=== PATIENT | female | born 1940 | race Caucasian/White ===

== ENCOUNTER 2020-03-30 17:18 | Inpatient (IN) | payer OTHER ==
--- NOTE | 2020-03-30 17:27 | PDOC ---
Rapid Medical Evaluation Chief Complaint: Rash Time Seen by Provider: 03/30/20 17:24 Medical Evaluation: Allergies Allergy/AdvReac Type Severity Reaction Status Date / Time No Known Allergies Allergy Verified 03/30/20 17:21 03/30/20 17:24 The patient is a 79 y/o F w/ PMH of liver CA on chemo, last dosage on 03/23, presents to the ER for a new rash to her chest and back (started on 03/27) as well as swelling to her lower legs. Denies new medication Exam: 3+ pitting edema b/l, R worse than L. Macular papular rash, non-blanching to the chest and back Orders: labs, IV insert Pt to proceed to the ER for further evaluation 03/30/20 17:26 Discharge Disposition - Diagnosis Rash - Referrals - Patient Instructions - Post Discharge Activity
--- NOTE | 2020-03-30 18:22 | PDOC ---
History of Present Illness - General Chief Complaint: Rash Stated Complaint: RASH/LEG SWOLLEN Time Seen by Provider: 03/30/20 17:24 History Source: Patient, Family Exam Limitations: No Limitations - History of Present Illness Initial Comments: 03/30/20 18:05 Onc: Rishi Mccabe at [facility] HCP: Daughter Fely Walter ([phone]) HPI: 79 y/o F PMH Hepatocellular carcinoma on Nivolumab (Dr. Rishi Mccabe, [facility]) last dosage on 03/23 presenting to the ED for a new rash to her chest and back, tea colored urine, and bilateral LE edema (R > L) starting on 03/26. Denies new medications other than a transition from her old chemotherapy to Nivolumab, now s/p second infusion on 03/23. Became concerned when she noted that her symptoms (including pre existing diarrhea "supposed to eat gluten free") were all listed on the side effects list. Called her Oncologist who suggested she present for evaluation. She denies fevers, chills, nausea, vomiting, abdominal pain, chest pain, shortness of breath, cough, any LE pain, bleeding in urine or stool, difficulty eating, cramping, shaking chills, constipation, dysuria. Meds: Docusate sodium 100 mg TID Furosemide 20 mg daily Levofloxacin 500 mg daily Levothyroxine 25 mcg daily Loperamide 2 mg QID Metronidazole 250 mg TID Omeprazole 40 mg daily Pantoprazole 40 mg daily Spironolactone 25 mg daily Labs from 02/24/20 available for comparison. Past History - Travel History Traveled outside of the country in the last 30 days: No Close contact w/someone who was outside of country & ill: No - Medical History Allergies/Adverse Reactions: Allergies Allergy/AdvReac Type Severity Reaction Status Date / Time No Known Allergies Allergy Verified 03/30/20 17:21 Home Medications: Ambulatory Orders Furosemide [Lasix] 20 mg PO DAILY 03/30/20 - Psycho-Social/Smoking History Smoking History: Never smoked Number of Cigarettes Smoked Daily: 4 Information on smoking cessation initiated: No 'Breaking Loose' booklet given: 10/26/13 - Substance Abuse Hx (Audit-C & DAST Scrn) How often the patient has a drink containing alcohol: Never Score: In Men: 4 or > Positive; In Women: 3 or > Positive: 0 Screen Result (Pos requires Nsg. Audit-10AR): Negative In the last yr the pt used illegal drug/Rx for NonMed reason: No Score: Yes response is considered Positive: 0 Screen Result (Positive result requires Nsg. DAST-10): Negative Review of Systems - Review of Systems Able to Perform ROS?: Yes Is the patient limited [place]alan proficient: Yes Constitutional: No: Chills, Diaphoresis, Fever, Weakness HEENTM: No: Recent change in vision, Throat Pain Respiratory: No: Cough, Shortness of Breath, Wheezing Cardiac (ROS): Yes: Edema. No: Chest Pain, Irregular Heart Rate, Lightheadedness, Palpitations, Syncope, Chest Tightness ABD/GI: Yes: Diarrhea (chronic during cancer treatment). No: Constipated, Nausea, Vomiting : Yes: See HPI (dark colored urine). No: Burning, Dysuria, Frequency, Hematuria Musculoskeletal: No: Muscle Pain, Muscle Weakness Integumentary: Yes: Pruritus (mild overlyign rash), Rash (chest and back). No: Bruising, Dryness, Erythema Neurological: No: Headache, Numbness, Tingling, Weakness Psychiatric: No: Stressors, Change in Appetite Endocrine: No: Increased Thirst, Increased Urine Hematologic/Lymphatic: No: Anemia, Blood Clots, Easy Bleeding All Other Systems: Reviewed and Negative *Physical Exam - Vital Signs Last Vital Signs Temp Pulse Resp BP Pulse Ox 98.2 F 80 15 134/87 97 03/30/20 17:22 03/30/20 17:22 03/30/20 17:22 03/30/20 17:22 03/30/20 17:22 - Physical Exam 03/30/20 18:24 Vitals reviewed, AFVSS GEN: Well appearing, elderly, appears stated age, NAD, comfortable. AAOx3. HEENT: NCAT, EOMI, PERRL. Sclera anicteric, non-injected. No facial asymmetry. Moist mucous membranes. Normal voice. Trachea midline. CV: RRR, S1/S2, no murmurs / rubs / gallops appreciated. LUNG: CTABL, normal work of breathing. No wheezes, rales, rhonchi. No cough. Speaking full sentences. GI: Soft, NTND, +BS, no guarding, no rebound. No masses. EXTREMITIES: 2+ distal pulses. No clubbing / cyanosis. 3+ edema bilateral LE with R > L, non-tender to palpation. No gross deformity in any extremity. SKIN: Warm, dry, scattered 0.5-1cm diameter, erythematous, blanching, non- tender, raised papules across chest and back without signs of excoriation, non- jaundiced. PSYCH: Normal mood and affect. Cooperative and appropriate. NEURO: CN grossly intact. Moving all extremities well. Normal strength and sensation grossly. ED Treatment Course - LABORATORY CBC & Chemistry Diagram: 03/30/20 18:20 03/30/20 18:20 - RADIOLOGY Radiology Studies Ordered: Category Date Time Status DUPLEX VASCUL US-2LEGS [US] Stat Ultrasound 03/30/20 18:00 Ordered Medical Decision Making - Medical Decision Making 03/30/20 18:22 79 y/o F PMH Hepatocellular carcinoma on Nivolumab (Dr. Rishi Mccabe, [facility]) last dosage on 03/23 presenting to the ED for a new rash to her chest and back, tea colored urine, and bilateral LE edema (R > L) starting on 03/26. History notable for recent chemo, simultaneous development of rash, LE edema, and "tea colored urine." Exam notable for stable vitals, rash as described, RLE > LLE with 3+ edema. Together concerning for infectious etiology in setting of immune suppression, drug reaction to / hypersensitivity to / side effect of new chemotherapy agent, DVT, cancer progression with lymphatic obstruction. - CBC, CMP, Coags, BNP - UA, UCx - Duplex LE - EKG - Stool culture 03/30/20 18:49 EKbpm, NSR, normal axis, QTc 495, no ST elevations but review limited by poor quality data / baseline Patient endorsed to overnight resident. Follow up labs, imaging. Disposition appropriately. Discharge - Discharge Information Problems reviewed: Yes Clinical Impression/Diagnosis: Rash, Lower extremity edema Condition: Stable - Follow up/Referral Referrals: ON STAFF,NOT [Primary Care Provider] - - Patient Discharge Instructions - Post Discharge Activity
[2020-03-30 18:37] LABS: BASO % 0.7 % (0-2.0); EOS % 1.8 % (0-4.5); HEMATOCRIT 33.3 % (32.4-45.2); HEMOGLOBIN 11.2 GM/dL (10.7-15.3); LYMPH % 34.7 % (8-40); MCH 33.4 pg (25.7-33.7); MCHC 33.6 g/dl (32.0-36.0); MEAN CELL VOLUME 99.3 fl (80-96); MEAN PLT VOLUME 8.1 fl (7.5-11.1); MONO % 12.9 % (3.8-10.2); NEUT % 49.9 % (42.8-82.8); PLATELET COUNT 116 K/MM3 (134-434); RBC 3.35 M/mm3 (3.60-5.2); RDW 17.6 % (11.6-15.6); WHITE BLOOD COUNT 5.9 K/mm3 (4.0-10.0)
--- NOTE | 2020-03-30 19:08 | PDOC ---
*Physical Exam - Vital Signs Last Vital Signs Temp Pulse Resp BP Pulse Ox 98.2 F 80 15 134/87 97 03/30/20 17:22 03/30/20 17:22 03/30/20 17:22 03/30/20 17:22 03/30/20 17:22 - Physical Exam 03/30/20 21:16 GEN: Well appearing, NAD. AAOx3. HEENT: NCAT, EOMI, PERRL. Sclera anicteric, non-injected. No facial asymmetry. Moist mucous membranes. Normal voice. Trachea midline. CV: RRR, S1/S2, no murmurs / rubs / gallops appreciated. LUNG: CTA bilaterally no wheezes rales or rhonchi GI: Soft, NTND, +BS, no guarding, no rebound. No masses. EXTREMITIES: 2+ distal pulses. No clubbing / cyanosis. 3+ edema bilateral LE with R > L, non-tender to palpation. No gross deformity in any extremity. SKIN: Warm, dry, scattered 0.5-1cm diameter, erythematous, blanching, non- tender, raised papules across chest and back without signs of excoriation, non- jaundiced. PSYCH: Normal mood and affect. Cooperative and appropriate. NEURO: CN grossly intact. Moving all extremities well. Normal strength and sensation grossly. ED Treatment Course - LABORATORY CBC & Chemistry Diagram: 03/31/20 05:35 03/31/20 05:35 - ADDITIONAL ORDERS Additional order review: 03/30/20 18:20 RBC 3.35 L MCV 99.3 H MCHC 33.6 RDW 17.6 H MPV 8.1 Neutrophils % 49.9 Lymphocytes % 34.7 Monocytes % 12.9 H Eosinophils % 1.8 Basophils % 0.7 Medical Decision Making - Medical Decision Making 03/30/20 19:06 Received signout from night team. 79 yo female with HCC presents to the ED for rash, tea colored urine, and lower ext edema starting four days ago. Pt has recently started new drug on 03/23 nivolumab. Will follow up labs and call oncologist for dispo. 03/30/20 20:44 Pts T.bili was elevated. Called Oncologist left message with secretary to board of commissioners will call back. 03/30/20 20:56 Talked to Pt oncologist who stated that if rash is not bad they can follow up with outpatient clinic next week. Pt urine came back positive for infection so will give 1g rocephin and admit. 03/30/20 21:18 Talked to pt and daughter Mrs. Walter (health proxy [phone]) about decision to admit due to UTI and immunocompromised state and agreed to admission. 03/30/20 21:[address] [facility] ([phone]) [facility] so will admit to hospitalist. Pt was accepted for admission Discharge - Discharge Information Problems reviewed: Yes Clinical Impression/Diagnosis: Rash, Lower extremity edema, UTI (urinary tract infection) Condition: Stable - Admission Yes - Follow up/Referral - Patient Discharge Instructions - Post Discharge Activity
[2020-03-30 19:11] LABS: INR 1.76 (0.83-1.09); PROTHROMBIN TIME (PATIENT) 20.9 SEC (9.7-13.0)
[2020-03-30 19:16] LABS: ALBUMIN 2.3 g/dl (3.4-5.0); BILIRUBIN,DIRECT 1.3 mg/dL (0.0-0.2); BILIRUBIN,TOTAL 2.5 mg/dL (0.2-1); BLOOD UREA NITROGEN 10.7 mg/dL (7-18); CALCIUM 8.2 mg/dL (8.5-10.1); CREATININE 0.9 mg/dL (0.55-1.3); N-TERMINAL BNP 317.8 pg/ml (5-450); POTASSIUM 3.6 mmol/L (3.5-5.1); TOT PROT 6.7 g/dl (6.4-8.2)
--- NOTE | 2020-03-30 19:25 | PDOC ---
Documentation entered by Pooja Bertrand SCRIBE, acting as scribe for Lucas Ruelas MD. Lucas Ruelas MD: This documentation has been prepared by the Jerzy tracey Brenda, SCRIBE, under my direction and personally reviewed by me in its entirety. I confirm that the documentation accurately reflects all work, treatment, procedures, and medical decision making performed by me. Attending Attestation - Resident Resident Name: [place] - ED Attending Attestation I have performed the following: I have examined & evaluated the patient, The case was reviewed & discussed with the resident, I agree w/resident's findings & plan, Exceptions are as noted - HPI HPI: 03/30/20 18:56 The patient is a 79 year old female with a significant PMH of liver cancer (last dosage on 03/23) who presents to the ED for evaluation of 4 days of a rash on her chest and back. The patient also endorses lower extremity swelling. Denies new medication. The patient denies chest pain, shortness of breath, headache and dizziness. Denies fever, chills, nausea, vomiting, diarrhea and constipation. Denies dysuria, frequency, urgency and hematuria. Onc: Rishi Mccabe at [place] [facility] - Physicial Exam PE: 03/30/20 19:26 Vitals: Triage Vital signs reviewed General Appearance: No acute distress, well nourished well developed, Head: Atraumatic, Chest Wall: Nontender Cardiac: Regular rate and rhythym, no murmurs, no rubs, no gallops, Lungs: Clear to auscultation bilateral, good air movement bilaterally, Abdomen: Soft, non distended, normal bowel sounds, non tender to palpation Extremities right lower extremity greater than left lower extremity Skin: Diffuse macular rash to chest and trunk minimally blanching appears vasculitic versus drug reaction Neuro: AOX3; cranial Nerves 2-12 grossly intact, strength intact to all extremities, sensation intact to all extremities, gait normal Psych: Normal mood, normal affect - Medical Decision Making 03/30/20 19:26 The patient is a 79 year old female with a significant PMH of liver cancer (last dosage on 03/23) who presents to the ED for evaluation of 4 days of a rash on her chest and back. The patient also endorses lower extremity swelling. Will initiate septic work-up ultrasound to rule out DVT and discuss lab findings with patient's oncologist for definitive management Dr. Flores to follow up labs and reasses Discharge - Discharge Information Problems reviewed: Yes Clinical Impression/Diagnosis: Rash, Lower extremity edema, UTI (urinary tract infection) Condition: Stable - Admission No - Follow up/Referral - Patient Discharge Instructions - Post Discharge Activity
[2020-03-30 20:43] LABS: EPI CELLS 35 /uL (0-25.1); HYALINE CASTS 68 /uL (0-3.1); PH,URINE 5.5 (5.0-8.0); URINE APPEARANCE CLOUDY; URINE BILIRUBIN 1+ (NEGATIVE); URINE COLOR DK YELLOW; URINE GLUCOSE (UA) NEGATIVE (NEGATIVE); URINE KETONE TRACE (NEGATIVE); URINE LEUK ESTERASE 2+ (NEGATIVE); URINE NITRITE POSITIVE (NEGATIVE); URINE PROTEIN TRACE (NEGATIVE); URINE WBC 783 /uL (0-25.8)
[2020-03-30] MEDS ORDERED: CEFTRIAXONE 1 GM/50 ML BAG ONE (21:02)
[2020-03-30] MEDS ORDERED: CEFTRIAXONE 1,000 MG in DEXTROSE 5%-WATER - 50 ML IVPB ONE (21:42)
--- NOTE | 2020-03-30 23:10 | PN ---
Teaching Attending Note Name of Resident: Kenneth Wilde ATTENDING PHYSICIAN STATEMENT I saw and evaluated the patient. I reviewed the resident's note and discussed the case with the resident. I agree with the resident's findings and plan as documented. SUBJECTIVE: 79 years old F with PMH, hep C, of HCC presented to ED with chief c/o rash on her chest and back, tea colored urine and worsening of b/ LE swelling ( R>L) She also c/o cough dry at night for 2-3 days. She is on chemotherapy for HCC she was started on new chemotherapy n nivolumab s/p second infusion on 03/23 she denies chest pain, SOB, nausea,vomiting,fever, urinary symptoms - dysuria, frequency. OBJECTIVE: Last Vital Signs Temp Pulse Resp BP Pulse Ox 98.6 F 79 22 H 113/66 97 03/30/20 22:11 03/30/20 22:11 03/30/20 22:11 03/30/20 22:11 03/30/20 22:11 GEN: elderly female, not in acute distress HEENT: NCAT, EOMI, PERRL. Sclera anicteric, non-injected. No facial asymmetry. Moist mucous membranes. CV: RRR, S1/S2, no murmurs / rubs / gallops appreciated. LUNG: CTABL, normal work of breathing. No wheezes, rales, rhonchi. No cough. Speaking full sentences. GI: Soft, NTND, +BS, no guarding, no rebound. No masses. EXTREMITIES: 2+ distal pulses. No clubbing / cyanosis. 2= pitting edema b/l LE R>lL SKIN: Warm, dry,raised papules erythematous rash PSYCH: Normal mood and affect. Cooperative and appropriate. NEURO: CN grossly intact. A&o x 3, no focal neurologic deficit UA + for UTI ASSESSMENT AND PLAN: UTI Rash likely due to chemotherapy, medication side effect b/l LE swelling r/o CHF b/l DVt studies IV ceftriaxone 2 gram. She is asymptomatic but will treat as she is immunoc ompromised elizabeth culture get CXR, BNP Give IV lasix 40 now check BNP. resume home PO lasix from AM Benadryl PRN for itchy rash dermatology eval if rash doesn't subside contact patient's oncology tomorrow regarding side effects Resume home medications DVt ppx
[2020-03-30 23:26] VITALS: BMI 25.9
[2020-03-30] MEDS ORDERED: guaiFENesin 200 MG/10 ML 10 ML UNIT-DOSE CUPS PO ONE (23:45)
--- NOTE | 2020-03-31 00:30 | HP ---
CHIEF COMPLAINT: rash PCP: [facility] Oncologist Rishi Mccabe([facility]) HISTORY OF PRESENT ILLNESS: 79F w/ pmh of Hepatitis C, Liver CA(on chemotherapy), current tobacco user presented to [facility] for complaint of diffuse mildly itchy rash on chest, back and arms. Has had rash for 3days. Doesn't think rash has increased in size. Has recently had a change in her chemotherapy regimen, changing to Nivolumab for which she has only gotten her 2nd dose on the . Denies fever, chills, wound drainage, environmental exposures, changes in laundry detergents. Has had associated nonproductive cough x2d, BLE leg swelling x1d. Thinks cough is worse at night. Was prescribed a "water pill" in the past, but was told to stop taking it. Pt does not recall the last time she had lasix. Thinks her urine has become dark-tea colored. No change in her stool color. No jaundicing. Started smoking at age 15-18y/o, smoking 1/2 ppd, but has nearly quit. Will smoke 1 or 2 cigarettes when she gets cravings ER course was notable for: (1) Tmax 98.6F, WBC 5.9, Tbil 2.5(Dbil 1.3) (2) UA: positive Nitrite, LE 2+, bilirubin 1+, WBC 783, bact >10k, epith 35 (3) ED resident contacted pt's oncologist who agreed that the rash could be related to Nivolumab, and can be managed as outpt. (4) Venous Duplex: neg DVT in BLE. Right popliteal fossa cyst(4.5 x3 x 1.7cm) (5) administered ceftriaxone 1g Recent Travel: denies PAST MEDICAL HISTORY: as above PAST SURGICAL HISTORY: none Social History: Smoking: tobacco 1/2ppd from 18y/o, quit recently but still smokes Alcohol: social Drugs: denies Allergies No Known Allergies Allergy (Verified 03/30/20 17:21) HOME MEDICATIONS: Home Medications Medication Instructions Recorded Furosemide [Lasix] 20 mg PO DAILY 03/30/20 REVIEW OF SYSTEMS CONSTITUTIONAL: Absent: fever, chills, diaphoresis, generalized weakness, malaise, loss of appetite, weight change HEENT: Absent: rhinorrhea, nasal congestion, throat pain, throat swelling, difficulty swallowing, mouth swelling, ear pain, eye pain, visual changes CARDIOVASCULAR: BLE edema Absent: chest pain, syncope, palpitations, irregular heart rate, lightheadedness RESPIRATORY: nonproductive cough Absent: shortness of breath, dyspnea with exertion, orthopnea, wheezing, stridor, hemoptysis GASTROINTESTINAL: Absent: abdominal pain, abdominal distension, nausea, vomiting, diarrhea, constipation, melena, hematochezia GENITOURINARY: Absent: dysuria, frequency, urgency, hesitancy, hematuria, flank pain, genital pain MUSCULOSKELETAL: Absent: myalgia, arthralgia, joint swelling, back pain, neck pain SKIN: rash, itching Absent: pallor HEMATOLOGIC/IMMUNOLOGIC: Absent: easy bleeding, easy bruising, lymphadenopathy, frequent infections ENDOCRINE: Absent: unexplained weight gain, unexplained weight loss, heat intolerance, cold intolerance NEUROLOGIC: Absent: headache, focal weakness or paresthesias, dizziness, unsteady gait, seizure, mental status changes, bladder or bowel incontinence PSYCHIATRIC: Absent: anxiety, depression, suicidal or homicidal ideation, hallucinations. PHYSICAL EXAMINATION Vital Signs - 24 hr 03/30/20 03/30/20 03/30/20 17:22 19:30 21:07 Temperature 98.2 F 97.7 F Pulse Rate 80 Pulse Rate [ 81 Apical] Respiratory 15 16 Rate Blood Pressure 134/87 Blood Pressure 117/58 L [Right Arm] O2 Sat by Pulse 97 98 98 Oximetry (%) 03/30/20 03/30/20 22:11 23:34 Temperature 98.6 F 898.1 F H Pulse Rate 77 Pulse Rate [ 77 Apical] Respiratory 22 H 22 H Rate Blood Pressure 137/68 Blood Pressure 113/66 [Right Arm] O2 Sat by Pulse 97 98 Oximetry (%) GENERAL: Awake, alert, and fully oriented. NAD HEAD: NC/AT. Moderate temporal wasting EYES: extraocular movements intact, sclera anicteric, conjunctiva clear with no conjunctiva. EARS, NOSE, THROAT: Ears normal, nares patent, oropharynx clear without exudates. Moist mucous membranes. NECK: Normal range of motion, supple without lymphadenopathy, JVD, or masses. LUNGS: b/l basialar crackles, increased on Left lung. No wheezes. No accessory muscle use. HEART: Regular rate and rhythm, normal S1 and S2 without murmur, rub or gallop. ABDOMEN: Soft, nontender, not distended, normoactive bowel sounds, no guarding, no rebound, no masses. MUSCULOSKELETAL: Normal range of motion at all joints. No bony deformities or tenderness. No CVA tenderness. UPPER EXTREMITIES: 2+ pulses, warm, well-perfused. No cyanosis. No clubbing. No peripheral edema. LOWER EXTREMITIES: 2+ pulses, warm, well-perfused. No calf tenderness. 2+ pitting edema below the knees NEUROLOGICAL: Normal speech. SKIN: Warm, dry, papular raised erythematous rash of the chest, back and BUE Laboratory Results - last 24 hr 03/30/20 03/30/20 03/30/20 18:20 18:20 18:20 WBC 5.9 RBC 3.35 L Hgb 11.2 Hct 33.3 D MCV 99.3 H MCH 33.4 MCHC 33.6 RDW 17.6 H Plt Count 116 L D MPV 8.1 Absolute Neuts (auto) 2.9 Neutrophils % 49.9 Lymphocytes % 34.7 Monocytes % 12.9 H Eosinophils % 1.8 Basophils % 0.7 Nucleated RBC % 0 PT with INR 20.90 H INR 1.76 H Sodium 141 Potassium 3.6 Chloride 109 H Carbon Dioxide 25 Anion Gap 7 L BUN 10.7 Creatinine 0.9 Est GFR (CKD-EPI)AfAm 71.48 Est GFR (CKD-EPI)NonAf 61.67 Random Glucose 97 Calcium 8.2 L Total Bilirubin 2.5 H Direct Bilirubin 1.3 H Indirect Bilirubin Cancelled AST 66 H ALT 26 Alkaline Phosphatase 95 B-Natriuretic Peptide 317.8 Total Protein 6.7 Albumin 2.3 L Urine Color Urine Appearance Urine pH Ur Specific [place] Urine Protein Urine Glucose (UA) Urine Ketones Urine Blood Urine Nitrite Urine Bilirubin Urine Urobilinogen Ur Leukocyte Esterase Urine WBC (Auto) Urine RBC (Auto) Urine Casts (Auto) U Pathogenic Cast Auto U Epithel Cells (Auto) Urine Bacteria (Auto) 03/30/20 20:14 WBC RBC Hgb Hct MCV MCH MCHC RDW Plt Count MPV Absolute Neuts (auto) Neutrophils % Lymphocytes % Monocytes % Eosinophils % Basophils % Nucleated RBC % PT with INR INR Sodium Potassium Chloride Carbon Dioxide Anion Gap BUN Creatinine Est GFR (CKD-EPI)AfAm Est GFR (CKD-EPI)NonAf Random Glucose Calcium Total Bilirubin Direct Bilirubin Indirect Bilirubin AST ALT Alkaline Phosphatase B-Natriuretic Peptide Total Protein Albumin Urine Color Dk yellow Urine Appearance Cloudy Urine pH 5.5 Ur Specific [place] 1.027 Urine Protein Trace Urine Glucose (UA) Negative Urine Ketones Trace H Urine Blood Negative Urine Nitrite Positive H Urine Bilirubin 1+ H Urine Urobilinogen 1.0 Ur Leukocyte Esterase 2+ H Urine WBC (Auto) 783 Urine RBC (Auto) 39.0 Urine Casts (Auto) 68 U Pathogenic Cast Auto None seen U Epithel Cells (Auto) 35 Urine Bacteria (Auto) >10,000 ASSESSMENT/PLAN: 79F w/ pmh of Hepatitis C, Liver CA(on chemotherapy), current tobacco user presented to [facility] for complaint of diffuse mildly itchy rash on chest, back and arms. Has had rash for 3days. Doesn't think rash has increased in size. Has recently had a change in her chemotherapy regimen, changing to Nivolumab. Has nonproductive cough. No suprapubic tenderness. ED requested admission for UTI. #diffuse truncal + BUE rash --likely 2/2 Nivolumab. Pt has minimal complaints - benadryl PRN - consider contacting outpt oncology for additional recs #asymptomatic bactiuria --will treat pt d/t possible immunosuppression > UA: positive Nitrite, LE 2+, bilirubin 1+, WBC 783, bact >10k, epith 35 - ceftriaxone 2g #?chronic ?CHF --pt was formerly on lasix #new-onset b/l edema --neg for DVT > Venous Duplex: neg DVT in BLE. Right popliteal fossa cyst(4.5 x3 x 1.7cm) - cw for now as pt had crackles and BLE edema on examination - consider contacting PCP to find out why lasix was held as outpatient #chronically elevated Tbil --unchanged from baseline > Tbil 2.5(Dbil 1.3) - monitor FEN - soft-diet, sodium restricted DVT PPX - lovenox Family Medical History Family History: Unremarkable Visit type - Medication Review Med list reviewed for High Risk Meds patients 65 and older: Yes - Emergency Visit Emergency Visit: Yes ED Registration Date: 03/30/20 Care time: The patient presented to the Emergency Department on the above date and was hospitalized for further evaluation of their emergent condition. - New Patient This patient is new to me today: Yes Date on this admission: 03/31/20 - Critical Care Critical Care patient: No ATTENDING PHYSICIAN STATEMENT I saw and evaluated the patient. I reviewed the resident's note and discussed the case with the resident. I agree with the resident's findings and plan as documented. SUBJECTIVE: OBJECTIVE: ASSESSMENT AND PLAN:
[2020-03-31] MEDS ORDERED: ACETAMINOPHEN 325 MG TABLET (FP) PO PRN (00:31)
[2020-03-31] MEDS ORDERED: FUROSEMIDE 40 MG/4 ML INJECTABLE VIAL IVPUSH ONE (00:41)
[2020-03-31] MEDS ORDERED: diphenhydrAMINE HCL 25 MG CAPSULE (FP) PO PRN (00:43)
[2020-03-31] MEDS: INSULIN SLIDING SCALE (NOVOLOG) 1 VIAL SQ SCH (06:00)
[2020-03-31] MEDS: LEVOTHYROXINE NA 25 MCG TABLET (FP) PO SCH (06:02)
[2020-03-31 06:07] LABS: BASO % 0.5 % (0-2.0); HEMATOCRIT 30.5 % (32.4-45.2); HEMOGLOBIN 10.3 GM/dL (10.7-15.3); MCHC 33.9 g/dl (32.0-36.0); MEAN CELL VOLUME 97.3 fl (80-96); MONO % 13.3 % (3.8-10.2); NEUT % 51.2 % (42.8-82.8); PLATELET COUNT 102 K/MM3 (134-434); RBC 3.13 M/mm3 (3.60-5.2); RDW 17.5 % (11.6-15.6); WHITE BLOOD COUNT 5.4 K/mm3 (4.0-10.0)
[2020-03-31 06:40] LABS: BILIRUBIN,TOTAL 2.6 mg/dL (0.2-1); BLOOD UREA NITROGEN 10.2 mg/dL (7-18); CALCIUM 7.8 mg/dL (8.5-10.1); CREATININE 0.6 mg/dL (0.55-1.3); MAGNESIUM 1.8 mg/dL (1.8-2.4); PHOSPHOROUS 2.7 mg/dL (2.5-4.9); TOT PROT 5.8 g/dl (6.4-8.2)
[2020-03-31 07:41] LABS: N-TERMINAL BNP 403.9 pg/ml (5-450)
[2020-03-31] MEDS ORDERED: DEXTROSE 5%-WATER 100 ML IVPB ONE (09:01)
[2020-03-31] MEDS: PANTOPRAZOLE 40 MG TABLET PO SCH (09:04)
[2020-03-31] MEDS: ENOXAPARIN NA (PORCINE) 40 MG/0.4 ML DISP.SYRIN SQ SCH (09:04)
[2020-03-31] MEDS: FUROSEMIDE 20 MG TABLET (FP) PO SCH (09:05)
[2020-03-31] MEDS: CEFTRIAXONE 2 GM in DEXTROSE 5%-WATER 100 ML IVPB SCH (09:05)
[2020-03-31] MEDS ORDERED: SPIRONOLACTONE 25 MG TABLET PO SCH (10:00)
[2020-03-31] MEDS ORDERED: POTASSIUM CHLORIDE TABS 20 MEQ TABLET.ER (FP) PO ONE (10:01)
[2020-03-31] MEDS: KCL 10 MEQ IVPB 10 MEQ/100 ML INFUS.BAG IVPB SCH ×2 (10:54→11:54)
--- NOTE | 2020-03-31 11:09 | PN ---
Physical Exam: SUBJECTIVE: Patient seen and examined at bedside. Resting comfortably, no acute events overnight. OBJECTIVE: Vital Signs Period Temp Pulse Resp BP Sys/March Pulse Ox Last 24 Hr 97.7 F-898.1 F 77-86 15-22 105-137/53-87 94-98 GENERAL: NAD HEAD: Normal with no signs of trauma. EYES: EOMI Sclera Clear ENT: MMM NECK: Trachea midline, full range of motion, supple. LUNGS: Clear Bilaterally HEART: RRR S1S2 ABDOMEN: Soft nontender, No guarding/Rebound, Distended. EXTREMITIES: No significant edema appreciated PSYCH: Normal mood, normal affect. SKIN: Maculopapular blanching rash on chest and back-scattered. Laboratory Results - last 24 hr 03/30/20 03/30/20 03/30/20 18:20 18:20 18:20 WBC 5.9 RBC 3.35 L Hgb 11.2 Hct 33.3 D MCV 99.3 H MCH 33.4 MCHC 33.6 RDW 17.6 H Plt Count 116 L D MPV 8.1 Absolute Neuts (auto) 2.9 Neutrophils % 49.9 Lymphocytes % 34.7 Monocytes % 12.9 H Eosinophils % 1.8 Basophils % 0.7 Nucleated RBC % 0 PT with INR 20.90 H INR 1.76 H Sodium 141 Potassium 3.6 Chloride 109 H Carbon Dioxide 25 Anion Gap 7 L BUN 10.7 Creatinine 0.9 Est GFR (CKD-EPI)AfAm 71.48 Est GFR (CKD-EPI)NonAf 61.67 POC Glucometer Random Glucose 97 Calcium 8.2 L Phosphorus Magnesium Total Bilirubin 2.5 H Direct Bilirubin 1.3 H Indirect Bilirubin Cancelled AST 66 H ALT 26 Alkaline Phosphatase 95 B-Natriuretic Peptide 317.8 Total Protein 6.7 Albumin 2.3 L Urine Color Urine Appearance Urine pH Ur Specific Fowler Urine Protein Urine Glucose (UA) Urine Ketones Urine Blood Urine Nitrite Urine Bilirubin Urine Urobilinogen Ur Leukocyte Esterase Urine WBC (Auto) Urine RBC (Auto) Urine Casts (Auto) U Pathogenic Cast Auto U Epithel Cells (Auto) Urine Bacteria (Auto) 03/30/20 03/31/20 03/31/20 20:14 05:35 05:35 WBC 5.4 RBC 3.13 L Hgb 10.3 L Hct 30.5 L MCV 97.3 H MCH 33.0 MCHC 33.9 RDW 17.5 H Plt Count 102 L MPV 8.0 Absolute Neuts (auto) 2.7 Neutrophils % 51.2 Lymphocytes % 33.0 Monocytes % 13.3 H Eosinophils % 2.0 Basophils % 0.5 Nucleated RBC % 0 PT with INR INR Sodium 140 Potassium 3.0 L Chloride 107 Carbon Dioxide 27 Anion Gap 6 L BUN 10.2 Creatinine 0.6 Est GFR (CKD-EPI)AfAm 101.90 Est GFR (CKD-EPI)NonAf 87.92 POC Glucometer Random Glucose 83 Calcium 7.8 L Phosphorus 2.7 Magnesium 1.8 Total Bilirubin 2.6 H Direct Bilirubin Indirect Bilirubin AST 56 H ALT 23 Alkaline Phosphatase 78 B-Natriuretic Peptide 403.9 Total Protein 5.8 L Albumin 2.0 L Urine Color Dk yellow Urine Appearance Cloudy Urine pH 5.5 Ur Specific Fowler 1.027 Urine Protein Trace Urine Glucose (UA) Negative Urine Ketones Trace H Urine Blood Negative Urine Nitrite Positive H Urine Bilirubin 1+ H Urine Urobilinogen 1.0 Ur Leukocyte Esterase 2+ H Urine WBC (Auto) 783 Urine RBC (Auto) 39.0 Urine Casts (Auto) 68 U Pathogenic Cast Auto None seen U Epithel Cells (Auto) 35 Urine Bacteria (Auto) >10,000 03/31/20 05:36 WBC RBC Hgb Hct MCV MCH MCHC RDW Plt Count MPV Absolute Neuts (auto) Neutrophils % Lymphocytes % Monocytes % Eosinophils % Basophils % Nucleated RBC % PT with INR INR Sodium Potassium Chloride Carbon Dioxide Anion Gap BUN Creatinine Est GFR (CKD-EPI)AfAm Est GFR (CKD-EPI)NonAf POC Glucometer 83 Random Glucose Calcium Phosphorus Magnesium Total Bilirubin Direct Bilirubin Indirect Bilirubin AST ALT Alkaline Phosphatase B-Natriuretic Peptide Total Protein Albumin Urine Color Urine Appearance Urine pH Ur Specific Fowler Urine Protein Urine Glucose (UA) Urine Ketones Urine Blood Urine Nitrite Urine Bilirubin Urine Urobilinogen Ur Leukocyte Esterase Urine WBC (Auto) Urine RBC (Auto) Urine Casts (Auto) U Pathogenic Cast Auto U Epithel Cells (Auto) Urine Bacteria (Auto) Active Medications Generic Name Dose Route Start Last Admin Trade Name Freq PRN Reason Stop Dose Admin Acetaminophen 650 mg 03/31/20 00:31 Tylenol - PO Q4H PRN PAIN LEVEL 4 - 6 Diphenhydramine HCl 25 mg 07/25/20 00:43 Benadryl - PO Q6H PRN FOR ITCHING Enoxaparin Sodium 40 mg 03/31/20 10:00 03/31/20 09:04 Lovenox - SQ 40 mg DAILY KIMBER Administration Furosemide 20 mg 03/31/20 10:00 03/31/20 09:05 Lasix - PO 20 mg DAILY KIMBER Administration Ceftriaxone Sodium 2 gm/ 100 mls @ 200 mls/hr 03/31/20 10:00 03/31/20 09:05 Dextrose IVPB 200 mls/hr DAILY KIMBER Administration Potassium Chloride 10 meq in 100 mls @ 100 mls/hr 03/31/20 10:15 Potassium Chloride 10 Meq Premix Ivpb - IVPB 03/31/20 12:14 Q60M KIMBER Insulin Aspart 1 vial 03/31/20 07:00 03/31/20 06:00 Novolog Vial Sliding Scale - SQ Not Given [facility] Protocol Levothyroxine Sodium 25 mcg 03/31/20 07:00 03/31/20 06:02 Synthroid - PO 25 mcg DAILY@0700 KIMBER Administration Pantoprazole Sodium 40 mg 03/31/20 10:00 03/31/20 09:04 Protonix - PO 40 mg DAILY KIMBER Administration Spironolactone 25 mg 03/31/20 10:00 03/31/20 09:04 Aldactone - PO 25 mg DAILY KIMBER Administration ASSESSMENT/PLAN: 79F w/ pmh of Hepatitis C, Liver CA(on chemotherapy), current tobacco user presented to [facility] for complaint of diffuse mildly itchy rash on chest, back and arms. Has had rash for 3days. Doesn't think rash has increased in size. Has recently had a change in her chemotherapy regimen, changing to Nivolumab. Has nonproductive cough. No suprapubic tenderness. ED requested admission for UTI. #diffuse truncal + BUE rash --likely 2/2 Nivolumab. - benadryl PRN - will consult heme to decide if steroids are needed #asymptomatic UTI --will treat pt d/t possible immunosuppression > UA: positive Nitrite, LE 2+, bilirubin 1+, WBC 783, bact >10k, epith 35 - ceftriaxone 2g - if urine cx is negative will dc Abx # Elevated indirect bilirubin. - may 2 Malignancy - r/o hemolysis . check LDH and Hapto - no evidence of obstruction # thrombocytopenia/Macrocytic anemia: May be 2/2 chemotherapy and HCC -Haptoglobin, LD, Vit B12, Folate #FEN -Sodium Controlled -Monitor electrolytes -No Fluids DVT PPX - Lovenox Visit type - Emergency Visit Emergency Visit: Yes ED Registration Date: 03/30/20 Care time: The patient presented to the Emergency Department on the above date and was hospitalized for further evaluation of their emergent condition. - New Patient This patient is new to me today: No - Critical Care Critical Care patient: No - Discharge Referral Referred to [facility] Med P.C.: No - Medication Review Med list reviewed for High Risk Meds patients 65 and older: Yes ATTENDING PHYSICIAN STATEMENT I saw and evaluated the patient. I reviewed the resident's note and discussed the case with the resident. I agree with the resident's findings and plan as documented. SUBJECTIVE: OBJECTIVE: ASSESSMENT AND PLAN:
--- NOTE | 2020-03-31 15:02 | PN ---
Teaching Attending Note Name of Resident: Alexandru Farris ATTENDING PHYSICIAN STATEMENT I saw and evaluated the patient. I reviewed the resident's note and discussed the case with the resident. I agree with the resident's findings and plan as documented. SUBJECTIVE: complains of increased Le edema and increased size of her abdomen . No N/V . no diarrhea. last BM yesterday. po intake is normal at home. had the rash x 3 days. no new med or abx. no topical applications. her chemo was switched to Nivolumab and last dose was given on 03/23. denies urinary sx. LE edema started 3 days ago only with the rash . she thinks her legs are down now . urine became brown x 3 days , now cleared to yellow OBJECTIVE: NAD, awake, alert, flat affect. MMM CV: RRR, no MRG Lungs: CTAB Abd: soft,NT, NL BS , distended, + shifting dullness Ext: No edema on legs . Skin: maculopapular, hyperpigmented, blanching lesions mainly on trunk, and less on extremities. none on face , and none on palms and soles. no ulcers on mucosa . ASSESSMENT AND PLAN: Unfortunate 79 y/o lady with h/o hep c and HCC currently on Nivolumab , last dose 03/23 who presented with rash . 1- Rash: likely due to immunotherapy. hemodynamically stable, no involvement of MM. no skin blisters . - will consult heme to decide if steroids are needed - will notify her oncologist as well - derm consult not available till Thursday 2- Possible UTI: - cont ceftriaxone . - if urine cx is negative will dc Abx 3- Elevated indirect bilirubin. - could be due to cancer treatment - r/o hemolysis . check LDh and Hapto - no signs of obstruction 4- thrombocytopenia: ? side effects of treatment , and liver disease montior 5- Macrocytic Anemia: liver disease, Vs B12/folate def, doubt hemolysis - check LDH, hapto - checl B12, folate 6- Le edma , could be due to the rash. no suspicion for heart failure . ? liver disease --> portal hypertension ---> ascitis and Le edema - check US of abd - no IVF - no need for diuresis now 7- replete hypokalemia
[2020-03-31 17:28] LABS: BASO % 0.4 % (0-2.0); EOS % 2.4 % (0-4.5); HEMATOCRIT 34.6 % (32.4-45.2); HEMOGLOBIN 11.6 GM/dL (10.7-15.3); MCH 33.5 pg (25.7-33.7); MCHC 33.5 g/dl (32.0-36.0); MEAN CELL VOLUME 99.9 fl (80-96); MEAN PLT VOLUME 8.4 fl (7.5-11.1); MONO % 12.1 % (3.8-10.2); NEUT % 58.1 % (42.8-82.8); PLATELET COUNT 107 K/MM3 (134-434); RBC 3.46 M/mm3 (3.60-5.2); RDW 17.9 % (11.6-15.6); WHITE BLOOD COUNT 6.4 K/mm3 (4.0-10.0)
[2020-03-31] MEDS: guaiFENesin 200 MG/10 ML 10 ML UNIT-DOSE CUPS PO PRN (18:48)
[2020-04-01] MEDS: guaiFENesin 200 MG/10 ML 10 ML UNIT-DOSE CUPS PO PRN ×3 (00:05→21:19)
[2020-04-01 06:26] LABS: HEMATOCRIT 31.1 % (32.4-45.2); HEMOGLOBIN 10.5 GM/dL (10.7-15.3); MCHC 33.7 g/dl (32.0-36.0); MEAN CELL VOLUME 98.1 fl (80-96); MEAN PLT VOLUME 8.5 fl (7.5-11.1); PLATELET COUNT 109 K/MM3 (134-434); RBC 3.17 M/mm3 (3.60-5.2); RDW 17.5 % (11.6-15.6); WHITE BLOOD COUNT 6.6 K/mm3 (4.0-10.0)
[2020-04-01] MEDS: LEVOTHYROXINE NA 25 MCG TABLET (FP) PO SCH (06:39)
[2020-04-01] MEDS: INSULIN SLIDING SCALE (NOVOLOG) 1 VIAL SQ SCH (06:39)
[2020-04-01 06:54] LABS: BLOOD UREA NITROGEN 10.1 mg/dL (7-18); CALCIUM 7.6 mg/dL (8.5-10.1); CREATININE 0.8 mg/dL (0.55-1.3); MAGNESIUM 1.8 mg/dL (1.8-2.4); PHOSPHOROUS 2.6 mg/dL (2.5-4.9); POTASSIUM 3.4 mmol/L (3.5-5.1)
[2020-04-01] MEDS ORDERED: DEXTROSE 5%-WATER 100 ML IVPB ONE (08:31)
[2020-04-01] MEDS: ENOXAPARIN NA (PORCINE) 40 MG/0.4 ML DISP.SYRIN SQ SCH (09:00)
[2020-04-01] MEDS: CEFTRIAXONE 2 GM in DEXTROSE 5%-WATER 100 ML IVPB SCH (09:00)
[2020-04-01] MEDS: FUROSEMIDE 20 MG TABLET (FP) PO SCH (09:01)
[2020-04-01] MEDS: PANTOPRAZOLE 40 MG TABLET PO SCH (09:01)
[2020-04-01 10:59] LABS: ALBUMIN 2.2 g/dl (3.4-5.0); BILIRUBIN,DIRECT 1.1 mg/dL (0.0-0.2); BILIRUBIN,TOTAL 2.2 mg/dL (0.2-1); TOT PROT 6.8 g/dl (6.4-8.2)
[2020-04-01] MEDS ORDERED: POTASSIUM CHLORIDE ORAL LIQUID 20 MEQ/15 ML PO ONE (14:19)
--- NOTE | 2020-04-01 14:31 | CONSULT ---
Consult Consult Specialty:: Oncology Referred by:: Medicine Reason for Consultation:: Rash - History of Present Illness Chief Complaint: Rash History of Present Illness: Patient with HCC, managed at [facility], recently received dose of nivolumab for same (?second dose), and noted emergence of diffuse rash 3 days later. Admitted for observation and consideration for steroids. Patient reports rash is significantly improved since prior. Denies pain or pruritus at this time. No prior history of severe rash. - History Source History Provided By: Patient Limitations to Obtaining History: No Limitations - Past Medical History ...: No - Alcohol/Substance Use Hx Alcohol Use: Yes (SOCIAL) - Smoking History Smoking history: Never smoked Aproximately how many cigarettes per day: 4 Home Medications - Allergies Allergies/Adverse Reactions: Allergies Allergy/AdvReac Type Severity Reaction Status Date / Time No Known Allergies Allergy Verified 03/30/20 17:21 - Home Medications Home Medications: Ambulatory Orders Furosemide [Lasix] 20 mg PO DAILY 03/30/20 Review of Systems - Review of Systems Constitutional: reports: No Symptoms Eyes: reports: No Symptoms HENT: reports: No Symptoms Neck: reports: No Symptoms Cardiovascular: reports: No Symptoms Respiratory: reports: No Symptoms Gastrointestinal: reports: Abdominal Pain Genitourinary: reports: No Symptoms Breasts: reports: No Symptoms Reported Musculoskeletal: reports: No Symptoms Integumentary: reports: Rash Neurological: reports: No Symptoms Physical Exam Vital Signs: Vital Signs Temperature 98.2 F 04/01/20 10:00 Pulse Rate 86 04/01/20 10:00 Respiratory Rate 17 04/01/20 10:00 Blood Pressure 103/55 L 04/01/20 10:00 O2 Sat by Pulse Oximetry (%) 94 L 04/01/20 10:00 Constitutional: Yes: Well Nourished, No Distress Eyes: Yes: Conjunctiva Clear HENT: Yes: WNL Neck: Yes: Supple, Trachea Midline. No: Lymphadenopathy Cardiovascular: Yes: Regular Rate and Rhythm, S1, S2. No: Gallop, Murmur Respiratory: Yes: Regular, CTA Bilaterally Gastrointestinal: Yes: Normal Bowel Sounds Neurological: Yes: Alert, Oriented ...Motor Strength: WNL Psychiatric: Yes: WNL (Diffuse papular-nodular lesions trunk) Labs: CBC, BMP 04/01/20 05:35 04/01/20 05:35 Assessment/Plan Erythropapular rash associated with recent administration nivolumab. Low grade and appears to be improving. Recommend only observation - no need for inpatient management. No indication for systemic steroids. Recommend to follow up with her oncologist at [facility] - Dr Mccabe.
--- NOTE | 2020-04-01 15:25 | PN ---
Progress Note (short form) - Note Progress Note: Subjective: no fever or chills . no pain . she feels her rash is better . no N/V. no other complaints Objective: Vital Signs: Last Vital Signs Temp Pulse Resp BP Pulse Ox 98.2 F 86 17 103/55 L 94 L 04/01/20 10:00 04/01/20 10:00 04/01/20 10:00 04/01/20 10:00 04/01/20 10:00 Laboratory Results - last 24 hr 03/30/20 03/31/20 04/01/20 22:00 16:55 05:27 WBC 6.4 RBC 3.46 L Hgb 11.6 Hct 34.6 MCV 99.9 H MCH 33.5 MCHC 33.5 RDW 17.9 H Plt Count 107 L MPV 8.4 Absolute Neuts (auto) 3.7 Neutrophils % 58.1 Lymphocytes % 27.0 Monocytes % 12.1 H Eosinophils % 2.4 Basophils % 0.4 Nucleated RBC % 0 Sodium Potassium Chloride Carbon Dioxide Anion Gap BUN Creatinine Est GFR (CKD-EPI)AfAm Est GFR (CKD-EPI)NonAf POC Glucometer 81 Random Glucose Calcium Phosphorus Magnesium Total Bilirubin Direct Bilirubin AST ALT Alkaline Phosphatase Total Protein Albumin Vitamin B12 Serum Folate COVID-19 (JD) Not detected 04/01/20 04/01/20 04/01/20 05:35 05:35 09:50 WBC 6.6 RBC 3.17 L Hgb 10.5 L Hct 31.1 L MCV 98.1 H MCH 33.0 MCHC 33.7 RDW 17.5 H Plt Count 109 L MPV 8.5 Absolute Neuts (auto) Neutrophils % Lymphocytes % Monocytes % Eosinophils % Basophils % Nucleated RBC % Sodium 139 Potassium 3.4 L Chloride 108 H Carbon Dioxide 26 Anion Gap 5 L BUN 10.1 Creatinine 0.8 Est GFR (CKD-EPI)AfAm 82.42 Est GFR (CKD-EPI)NonAf 71.11 POC Glucometer Random Glucose 84 Calcium 7.6 L Phosphorus 2.6 Magnesium 1.8 Total Bilirubin 2.2 H Direct Bilirubin 1.1 H AST 69 H ALT 28 Alkaline Phosphatase 91 Total Protein 6.8 Albumin 2.2 L Vitamin B12 1309 H Serum Folate 4 COVID-19 (JD) Physical Exam: NAD, awake, alert, flat affect. MMM CV: RRR, no MRG Lungs: CTAB Abd: soft,NT, NL BS , distended, Ext: No edema on legs . Skin: maculopapular, hyperpigmented, blanching lesions mainly on trunk, and less on extremities. none on face , and none on palms and soles. no ulcers on mucosa . rash looks almost the same as yesterday ASSESSMENT AND PLAN: Unfortunate 79 y/o lady with h/o hep c and HCC currently on Nivolumab , last dose 03/23 who presented with rash . 1- Rash: likely due to immunotherapy. No signs of yolanda's Loyd's syndrome - case was d/w heme. No indication for steroids - f/u with her oncologist is recommended - will call her oncologist tomorrow to notify. 2- Possible UTI: - cont ceftriaxone . - urine cx with 2 different organisms. will wait for final 3- Elevated indirect bilirubin. no signs hemolysis, LDH nl. - f/u with her oncologist 4- Thrombocytopenia: ? side effects of treatment , and liver disease - Monitor 5- Macrocytic Anemia: liver disease, Vs B12/folate def, doubt hemolysis - labs reviewed 6- Ascitis: due to liver cancer. patient reports she was placed on lasix at home for this and she ran out. she also reported a trial of paracentesis . - will leave her to follow up with her cancer doctors at [facility]. - this was d/w her and her daughter and they both agree - cont lasix 7- replete hypokalemia will make a disc fro US for her possible dc in am , pending urine cx Visit type - Emergency Visit Emergency Visit: Yes ED Registration Date: 03/30/20 Care time: The patient presented to the Emergency Department on the above date and was hospitalized for further evaluation of their emergent condition. - New Patient This patient is new to me today: No - Critical Care Critical Care patient: No - Medication Review Med list reviewed for High Risk Meds patients 65 and older: Yes
--- NOTE | 2020-04-01 17:34 | EKG ---
Test Reason : Blood Pressure : / mmHG Vent. Rate : 077 BPM Atrial Rate : 077 BPM P-R Int : 192 ms QRS Dur : 074 ms QT Int : 438 ms P-R-T Axes : 057 020 035 degrees QTc Int : 495 ms POOR DATA QUALITY, INTERPRETATION MAY BE ADVERSELY AFFECTED UNDETERMINED RHYTHM OTHERWISE NORMAL ECG NO PREVIOUS ECGS AVAILABLE Confirmed by MD Amira, Gautam ([id number]) on 04/01/2020 5:34:31 PM Referred By: Confirmed By:Gautam Collier MD
[2020-04-02] MEDS: INSULIN SLIDING SCALE (NOVOLOG) 1 VIAL SQ SCH (06:03)
[2020-04-02] MEDS: LEVOTHYROXINE NA 25 MCG TABLET (FP) PO SCH (06:04)
[2020-04-02] MEDS: guaiFENesin 200 MG/10 ML 10 ML UNIT-DOSE CUPS PO PRN (06:25)
[2020-04-02 08:06] LABS: HEMATOCRIT 29.5 % (32.4-45.2); HEMOGLOBIN 10.1 GM/dL (10.7-15.3); MCH 33.9 pg (25.7-33.7); MCHC 34.3 g/dl (32.0-36.0); MEAN CELL VOLUME 98.7 fl (80-96); MEAN PLT VOLUME 8.6 fl (7.5-11.1); PLATELET COUNT 106 K/MM3 (134-434); RBC 2.99 M/mm3 (3.60-5.2)
[2020-04-02 08:28] LABS: BILIRUBIN,TOTAL 2.5 mg/dL (0.2-1); CALCIUM 7.8 mg/dL (8.5-10.1); CREATININE 0.8 mg/dL (0.55-1.3); POTASSIUM 3.7 mmol/L (3.5-5.1); TOT PROT 6.1 g/dl (6.4-8.2)
[2020-04-02] MEDS ORDERED: DEXTROSE 5%-WATER 100 ML IVPB ONE (08:49)
[2020-04-02] MEDS: PANTOPRAZOLE 40 MG TABLET PO SCH (09:14)
[2020-04-02] MEDS: CEFTRIAXONE 2 GM in DEXTROSE 5%-WATER 100 ML IVPB SCH (09:14)
[2020-04-02] MEDS: ENOXAPARIN NA (PORCINE) 40 MG/0.4 ML DISP.SYRIN SQ SCH (09:15)
[2020-04-02] MEDS: FUROSEMIDE 20 MG TABLET (FP) PO SCH (09:15)
[2020-04-02 10:15] VITALS: TEMP 97.9
[2020-04-02 13:33] VITALS: BP 116/58; PULSE 78
--- NOTE | 2020-04-02 14:41 | PN ---
Teaching Attending Note Name of Resident: Shanta Walsh ATTENDING PHYSICIAN STATEMENT I saw and evaluated the patient. I reviewed the resident's note and discussed the case with the resident. I agree with the resident's findings and plan as documented. SUBJECTIVE: no fever or chills. rash is stable. had diarrhea this morning , with no abd pain, no N.v, no fever OBJECTIVE: ASSESSMENT AND PLAN: NAD, awake, alert, MMM CV: RRR, no MRG Lungs: CTAB Abd: soft, NT, NL BS , distended,+ shifting dullness Ext: No edema on legs . Skin: maculopapular, hyperpigmented, blanching lesions mainly on trunk, and less on extremities. none on face , and none on palms and soles. no ulcers on mucosa. rash did not change from yesterday ASSESSMENT AND PLAN: Unfortunate 79 y/o lady with h/o hep c and HCC currently on Nivolumab , last dose 03/23 who presented with rash . 1- Rash: likely due to immunotherapy. - No need for steroids. rash is stable 2- UTI: - Urine cx with E coli and group d strep. I called micro and learned that final Id and cx will be back tomorrow - spoke to patient about staying till am to get cx. but she has appointment with her GI tomorrow and defiantly wants to leave today - will dc her on ceftin fro 4 more days ( to complete 7 days ) - will follow up urine cx tomorrow and call her for Abx adjutment. she understand that if bacteria is resistant , she might need to come back fro IV abx 3- Elevated Bili. - spoke to Dr. Zuleta, her surgeon in [facility] . for the past year her bili base line has been 2.5 and LFTS in 60s. she also has ascitis, which has been managed by her GI , dr. Velázquez . Recs not to tap fro diagnostic purposes 4- Thrombocytopenia: baseline plt > [address] Zuleta 5- Macrocytic Anemia:follow with her doctors 6- Ascitis: will not tap as per d/dw dr. Zuleta. she has appointment with her GI , dr. Velázquez tomorrow . cont her lasix for now Spoke to Dr. Zuleta as above. updated about rash and condition ) awaiting a call back from dr. Mccabe, her medical oncologist. Has apot with him next week she has apt with Gi , Dr. Velázquez tomorrow spoke to daughterFely and updated her. she will keep her phone on tomorrow [phone] [facility]
--- NOTE | 2020-04-02 15:27 | DS ---
Physical Exam: SUBJECTIVE: Patient seen and examined OBJECTIVE: Vital Signs Period Temp Pulse Resp BP Sys/March Pulse Ox Last 24 Hr 97.9 F-98.2 F 78-88 17-19 106-116/58-60 94-96 PHYSICAL EXAM GENERAL: The patient was sleeping but arousable, cooperative, overall cachectic appearance, in no acute distress. HEAD: facial wasting, no signs of trauma EYES: PERRL LUNGS: CTAB, no wheezing appreciated HEART: RRR, S1 and S2 without murmurs ABDOMEN: nontender, distended, active bowel sounds, no guarding or rebound, notable for shifting dullness EXTREMITIES: warm, dry, no edema. NEUROLOGICAL: Cranial nerves II through XII grossly intact. Normal speech, gait not observed. PSYCH: Normal mood, normal affect. SKIN: Warm, dry, normal turgor, no rashes or lesions noted. LABS Laboratory Results - last 24 hr 04/02/20 04/02/20 04/02/20 05:59 06:34 06:34 WBC 6.0 RBC 2.99 L Hgb 10.1 L Hct 29.5 L MCV 98.7 H MCH 33.9 H MCHC 34.3 RDW 18.0 H Plt Count 106 L MPV 8.6 Sodium 136 Potassium 3.7 Chloride 106 Carbon Dioxide 23 Anion Gap 7 L BUN 10.0 Creatinine 0.8 Est GFR (CKD-EPI)AfAm 82.42 Est GFR (CKD-EPI)NonAf 71.11 POC Glucometer 80 Random Glucose 100 Calcium 7.8 L Total Bilirubin 2.5 H AST 58 H ALT 24 Alkaline Phosphatase 80 Total Protein 6.1 L Albumin 2.0 L HOSPITAL COURSE: Date of Admission:03/30/20 Date of Discharge: 04/02/20 Discharge Summary Problems reviewed: Yes Reason For Visit: UTI,HEPATOCELLULAR CARCINOMA,PRURITIC RASH Current Active Problems Hyperbilirubinemia (Acute) Rash (Acute) UTI (urinary tract infection) (Acute) Hepatitis C (Chronic) Hepatocellular carcinoma (Chronic) Smoking history (Chronic) Condition: Stable - Instructions Diet, Activity, Other Instructions: Hospital visit: You came to the hospital with a rash on 03/30/20, and you were also found to have a urinary tract infection. You've been treated with medications to help with itching, as well as an antibiotic to help with the infection. Your symptoms are improving and are able to finish your antibiotics at home. Your laboratory studies: Your potassium was slightly low and was repleted, you should have it re-checked at your next doctor's visit. Please get your TSH checked at your next doctor's visit - this is to check up on your thyroid function. Medications: - continue levothyroxine (Synthroid) 25mcg once per day - continue Furosemide (Lasix) 20mg once per day - START Cefuroxime 500mg twice per day, starting tomorrow morning 04/03/2020. Take it for 4 days, which means you will take a total of 8 doses. Diet: you may eat food as well as tolerated but try to NOT eat foods that have much salt in them. Activity/Exercise: try to walk throughout the day to keep your circulation flowing. However, when you are getting up from a chair or from bed, move slowly since you may get a bit dizzy initially. Do not lift any items that are heavier than 5 pounds. Follow up with your doctors: - your primary care physician Dr. Dawson in one week - your Oncologist Dr. Mccabe in one week - your detmatologist Dr. Law within the next week Other instructions: If you are feeling unwell or if you are experiencing any concerning symptoms (your rash is getting worse, it [place] when you urinate, feeling constipated, falling, chest pain, shortness of breath, fever above 101F, vomitting and/or diarrhea that is worsening), visit your neared emergency department or call 911. Referrals: Jeannie Dawson MD [Non Staff, Medical] - 1 Week Rishi Mccabe [Non Staff, Medical] - 1 Week Renea Law MD [Staff Physician] - 1 Week Disposition: HOME - Home Medications Comprehensive Discharge Medication List: Ambulatory Orders Cefuroxime Axetil [Cefuroxime] 500 mg PO BID #8 tablet 04/02/20 Chlorhexidine Gluconate [Peridex -] 15 ml MM BID 04/02/20 Furosemide [Lasix] 20 mg PO DAILY #30 tablet 04/02/20 Levothyroxine [Synthroid -] 25 mcg PO DAILY #30 tablet 04/02/20 ATTENDING PHYSICIAN STATEMENT I saw and evaluated the patient. I reviewed the resident's note and discussed the case with the resident. I agree with the resident's findings and plan as documented. SUBJECTIVE: OBJECTIVE: ASSESSMENT AND PLAN:
--- NOTE | 2020-04-02 15:40 | PN ---
Physical Exam: SUBJECTIVE: Patient seen and examined. Pt. states that today her rash was pruritic but resolved after receiving Benadryl. Pt. states that her rash did not worsen nor did it improve. Pt. denies any tenderness to to the papules. Pt. states that the rash did not develop after the first dose and that it developed 3 days after the 2nd dose. Pt. denies any other symptoms after receiving the second dose. OBJECTIVE: Vital Signs Period Temp Pulse Resp BP Sys/March Pulse Ox Last 24 Hr 97.9 F-98.2 F 78-88 17-19 106-116/58-60 94-96 GENERAL: The patient is awake, alert, and fully oriented, in no acute distress. HEAD: Normal with no signs of trauma. EYES: Sclera anicteric, conjunctiva clear. ENT: moist mucous membranes, no erythema NECK: Trachea midline LUNGS: Bibasilar crackles. No accessory muscle use HEART: Regular rate and rhythm, S1, S2 without murmur ABDOMEN: Soft, nontender, protuberant but not distended, normoactive bowel sounds, no guarding, no rebound EXTREMITIES: 2+ radial pulses, warm, well-perfused, no calf tenderness no edema. NEUROLOGICAL: Normal speech, Hesitant gait. PSYCH: Normal mood, normal affect. SKIN: Warm, dry,diffuse papular rash on torso- anterior and posterior. Laboratory Results - last 24 hr 04/02/20 04/02/20 04/02/20 05:59 06:34 06:34 WBC 6.0 RBC 2.99 L Hgb 10.1 L Hct 29.5 L MCV 98.7 H MCH 33.9 H MCHC 34.3 RDW 18.0 H Plt Count 106 L MPV 8.6 Sodium 136 Potassium 3.7 Chloride 106 Carbon Dioxide 23 Anion Gap 7 L BUN 10.0 Creatinine 0.8 Est GFR (CKD-EPI)AfAm 82.42 Est GFR (CKD-EPI)NonAf 71.11 POC Glucometer 80 Random Glucose 100 Calcium 7.8 L Total Bilirubin 2.5 H AST 58 H ALT 24 Alkaline Phosphatase 80 Total Protein 6.1 L Albumin 2.0 L Active Medications Generic Name Dose Route Start Last Admin Trade Name Freq PRN Reason Stop Dose Admin Acetaminophen 650 mg 03/31/20 00:31 Tylenol - PO Q4H PRN PAIN LEVEL 4 - 6 Diphenhydramine HCl 25 mg 03/31/20 00:43 04/02/20 11:07 Benadryl - PO 25 mg Q6H PRN Administration FOR ITCHING Enoxaparin Sodium 40 mg 03/31/20 10:00 04/02/20 09:15 Lovenox - SQ 40 mg DAILY KIMBER Administration Furosemide 20 mg 03/31/20 10:00 04/02/20 09:15 Lasix - PO 20 mg DAILY KIMBER Administration Guaifenesin 10 ml 03/31/20 18:37 04/02/20 06:25 Robitussin - PO 10 ml Q8H PRN Administration COUGH Ceftriaxone Sodium 2 gm/ 100 mls @ 200 mls/hr 03/31/20 10:00 04/02/20 09:14 Dextrose IVPB 200 mls/hr DAILY KIMBER Administration Insulin Aspart 1 vial 03/31/20 07:00 04/02/20 06:03 Novolog Vial Sliding Scale - SQ Not Given ACBK KIMBER Protocol Levothyroxine Sodium 25 mcg 03/31/20 07:00 04/02/20 06:04 Synthroid - PO 25 mcg DAILY@0700 KIMBER Administration Pantoprazole Sodium 40 mg 03/31/20 10:00 04/02/20 09:14 Protonix - PO 40 mg DAILY KIMBER Administration ASSESSMENT/PLAN: Pt. is a 79 y.o. F w/ PMHx. of Hx. of Hep C, HCC (currently on Nivolumab- last dose 03/23), Hypothyroidism and GERD presented with rash. We are called to assess for development of rash after receiving immunotherapy. #Eryropapular Rash likely 2/2 Immunotherapy (Nivolumab) advise starting on Triamcinolone cream, was previously observing without steroids. reccomend Dermatology f/u Pt. scheduled for Oncology appointment as outpatient Visit type - Emergency Visit Emergency Visit: Yes ED Registration Date: 03/30/20 Care time: The patient presented to the Emergency Department on the above date and was hospitalized for further evaluation of their emergent condition. - New Patient This patient is new to me today: Yes Date on this admission: 04/02/20 - Critical Care Critical Care patient: No - Discharge Referral Referred to [facility] Med P.C.: No - Medication Review Med list reviewed for High Risk Meds patients 65 and older: Yes ATTENDING PHYSICIAN STATEMENT I saw and evaluated the patient. I reviewed the resident's note and discussed the case with the resident. I agree with the resident's findings and plan as documented. SUBJECTIVE: OBJECTIVE: ASSESSMENT AND PLAN:
--- NOTE | 2020-04-06 12:09 | HOSP ---
Subjective - Review of Symptoms Events since last encounter: final result of urine cx was reviewd. E Faecalis sensitive to PCN. since E Faecalis, is usually not sensitive to cephalosporins, ceftin that the patient has will not be effective. augmentin was sent to patient's [facility]. Spoke to Jovany her daughter and informed of results/script. she will grain picker today patient is doing much better and still taking her ceftin. Physical Examination Vital Signs: Vital Signs Temperature 97.9 F 04/02/20 13:29 Pulse Rate 78 04/02/20 13:29 Respiratory Rate 19 04/02/20 13:29 Blood Pressure 116/58 L 04/02/20 13:29 O2 Sat by Pulse Oximetry (%) 95 04/02/20 13:29 Labs: CBC, BMP 04/02/20 06:34 04/02/20 06:34
--- NOTE | 2020-04-06 17:27 | DS ---
Physical Exam: SUBJECTIVE: Patient seen and examined, was experiencing some itching on her chest but otherwise was feeling "well" given her current immunocompromised state. Denied fever, chills, and pain. OBJECTIVE: PHYSICAL EXAM GENERAL: NAD HEAD: Normal with no signs of trauma. EYES: EOMI Sclera Clear ENT: MMM NECK: Trachea midline, full range of motion, supple. LUNGS: Clear Bilaterally HEART: RRR S1S2 ABDOMEN: Soft nontender, No guarding/Rebound, Distended. EXTREMITIES: No significant edema appreciated PSYCH: Normal mood, normal affect. SKIN: Maculopapular blanching rash on chest and back-scattered. HOSPITAL COURSE: 79yo F with PMHx of Hepatitis C, Liver CA (on chemotherapy), current tobacco user who presented to [facility] for complaint of diffuse mildly itchy rash on chest, back and arms. Patient recently had a change in her chemotherapy regimen, changing to Nivolumab, had a nonproductive cough, and no suprapubic tenderness on admission. ED workup was remarkable for scattered rash and a UA significant for positive Nitrite, LE 2+, bilirubin 1+, WBC 783, bact >10k, epith 35. Patient was afebrile and without leukocytosis. She was for her UTI and generalized rash in setting of chemotherapy. During the hospital course, she received cefuroxime and the rash was attributed to her new chemotherapy regimen. Patrick Loyd was ruled out, and she received bandryl for the itching. Patient was also seen by [facility] during her stay. Her symptoms improved and she was optimized for discharge home. Date of Admission:03/30/20 Date of Discharge: 04/06/20 Minutes to complete discharge: 37 Discharge Summary Problems reviewed: Yes Reason For Visit: UTI,HEPATOCELLULAR CARCINOMA,PRURITIC RASH Condition: Improved - Instructions Diet, Activity, Other Instructions: Hospital visit: You came to the hospital with a rash on 03/30/20, and you were also found to have a urinary tract infection. You've been treated with medications to help with itching, as well as an antibiotic to help with the infection. Your symptoms are improving and are able to finish your antibiotics at home. Your laboratory studies: Your potassium was slightly low and was repleted, you should have it re-checked at your next doctor's visit. Please get your TSH checked at your next doctor's visit - this is to check up on your thyroid function. Medications: - continue levothyroxine (Synthroid) 25mcg once per day - continue Furosemide (Lasix) 20mg once per day - START Cefuroxime 500mg every 12 hours , starting tomorrow morning 04/03/2020. Take it for 4 days, which means you will take a total of 8 doses. Diet: you may eat food as well as tolerated but try to NOT eat foods that have much salt in them. Activity/Exercise: try to walk throughout the day to keep your circulation flowing. However, when you are getting up from a chair or from bed, move slowly since you may get a bit dizzy initially. Follow up with your doctors: - your GI ,Dr. Dawson as scheduled tomorrow for management of your ascitis ( fluid in abdomen ) - your Oncologist Dr. Mccabe in one week as scheduled ( to decide on your immunotherapy) - keep your appointment with Dr. Zuleta in 2 days as scheduled ( surgeon ) - your detmatologist Dr. Law within the next week Other instructions: If you are feeling unwell or if you are experiencing any concerning symptoms (your rash is getting worse, it del rosario when you urinate, feeling constipated, falling, chest pain, shortness of breath, fever above 101F, vomitting and/or diarrhea that is worsening), visit your neared emergency department or call 911. Referrals: Jeannie Dawson MD [Non Staff, Medical] - 1 Week Renea Law MD [Staff Physician] - 1 Week Rishi Mccabe [Non Staff, Medical] - 1 Week Disposition: HOME - Home Medications Comprehensive Discharge Medication List: Ambulatory Orders Cefuroxime Axetil [Cefuroxime] 500 mg PO BID #8 tablet 04/02/20 Chlorhexidine Gluconate [Peridex -] 15 ml MM BID 04/02/20 Furosemide [Lasix] 20 mg PO DAILY #30 tablet 04/02/20 Levothyroxine [Synthroid -] 25 mcg PO DAILY #30 tablet 04/02/20 This patient is new to me today: Yes Date on this admission: 04/02/20 Emergency Visit: No Critical Care patient: No - Discharge Referral Referred to [facility] Med P.C.: No ATTENDING PHYSICIAN STATEMENT I saw and evaluated the patient. I reviewed the resident's note and discussed the case with the resident. I agree with the resident's findings and plan as documented. SUBJECTIVE: OBJECTIVE: ASSESSMENT AND PLAN:
== END 2020-04-02 16:26 | disposition home or self-care (01) | DRG 607 ==
LOC: JER 17:18 → JERBED 21:07 → J7W 23:13
PROVIDERS: ADMIT Internal Medicine; ATTEND Internal Medicine
DX: L27.0 Generalized skin eruption due to drugs and medicaments taken internally (principal); N39.0 Urinary tract infection, site not specified; K76.6 Portal hypertension; R18.8 Other ascites; C22.0 Liver cell carcinoma; B19.20 Unspecified viral hepatitis C without hepatic coma; T45.1X5A Adverse effect of antineoplastic and immunosuppressive drugs, initial encounter; R82.71 Bacteriuria; D69.6 Thrombocytopenia, unspecified; D53.9 Nutritional anemia, unspecified; E87.6 Hypokalemia
CPT/HCPCS: 36415; 71045-TC-FY; 76700-TC; 80048; 80053; 80076; 81003; 82248; 82607; 82746; 82962; 83010; 83615; 83735; 83880; 84100; 85025; 85027; 85610; 87040; 87045; 87046; 87086; 87186; 93005; 93010; 93970-TC; 97116-GP; 97162-GP; 99285-25; U0003